=== PATIENT | male | born 1940 | race Caucasian/White ===

== ENCOUNTER → 2020-11-25 01:33 | Outpatient (CLI) | payer MEDICARE, OTHER, SELFPAY ==
[2020-11-26 08:28] LABS: SARS-CoV-2 RNA PCR Negative
== END ==
PROVIDERS: PCP Family Medicine; Visit Provider Internal Medicine Gastroenterology
DX: Z01.812 Encounter for preprocedural laboratory examination (principal); Z20.822 Contact with and (suspected) exposure to COVID-19
CPT/HCPCS: C9803; U0003; U0005

== ENCOUNTER 2020-11-28 00:53 | Day surgery (SDC) | payer MEDICARE, OTHER, SELFPAY ==
[2020-11-16 13:39] VITALS: BMI 28.0
[2020-11-28 06:22] VITALS: BP 135/72; PULSE 79; RESP 17; TEMP 36.4; O2SAT 97; BMI 28.2
[2020-11-28] MEDS: LACTATED RINGERS 1,000 ML 150 ML IV CONT (06:29)
--- NOTE | 2020-11-28 07:17 | PM.HPGS ---
History of Present Illness History of Present Illness Consent: Risks, benefits, and alternatives have been discussed and questions answered. Patient agrees to proceed with procedure. Chief complaint: Neoplasm Screening Narrative: Felix Azevedo is a 80 year old male Referred for colon cancer scr Review of Systems Review of Systems: All systems reviewed & are unremarkable except as noted in HPI and below PMFSH Past Medical History Medical History Hyperlipidemia Hypertension Surgical History Surgical History (Updated 11/28/20 @ 07:15 by Oliverio Beth MD) S/P CABG x 3 Social History Social History Smoking status: Former smoker Alcohol intake: current Drinks per week: 7 Substance use type: does not use Living arrangements: with family Gender identity (if verbalized by the patient): Male Spiritual care concerns: No Meds Home Medications and Allergies Home Medications Medication Instructions Recorded Confirmed Type aspirin [Adult Low Dose Aspirin] 81 mg PO DAILY 11/16/20 11/28/20 History clopidogrel [Plavix] 75 mg PO DAILY 11/16/20 11/28/20 History metoprolol tartrate 50 mg PO DAILY 11/16/20 11/28/20 History simvastatin 20 mg PO DAILY 11/16/20 11/28/20 History Allergies Allergy/AdvReac Type Severity Reaction Status Date / Time No Known Allergies Allergy Verified 11/28/20 06:19 Vital Signs Vital Signs - 24 hr 11/28/20 06:22 Temperature 36.4 C L Pulse Rate 79 Respiratory Rate 17 Blood Pressure 135/72 Pulse Oximetry 79 L Exam Resp: Auscultation: clear to auscultation bilaterally Cardio: Rate: regular rate Rhythm: regular rhythm GI: GI Palp: Yes Soft to palpation and No Tenderness to palpation present (GI) Assessment and Plan Assessment and plan (1) Colon cancer screening: Code(s): Z12.11 - Encounter for screening for malignant neoplasm of colon Status: Acute Assessment and Plan: Colonoscopy with possible biopsy or polypectomy or cautery or injection of substances. (2) Personal history of colonic polyps: Code(s): Z86.010 - Personal history of colonic polyps Status: Acute Assessment and Plan: Colonoscopy with possible biopsy or polypectomy or cautery or injection of substances.
--- NOTE | 2020-11-28 07:21 | WPDANESEPPF ---
Anes - Initial Pre Proc Eval Procedure: Operation Date: 11/28/20 07:30 Proposed Procedures p Screening Colonoscopy - Keith Plummer MD Date/Time: 11/28/20 07:21 Surgeon: Keith Plummer MD Pre Op Diagnosis: Neoplasm Screening Patient Data Age: 80 Gender: M Height: 5 ft 9 in Weight: 86.7 kg Last Vital Signs Temp 97.5 F L 11/28/20 06:22 Pulse 79 11/28/20 06:22 Resp 17 11/28/20 06:22 BP 135/72 11/28/20 06:22 Pulse Ox 79 L 11/28/20 06:22 Allergies Allergy/AdvReac Type Severity Reaction Status Date / Time No Known Allergies Allergy Verified 11/28/20 06:19 Home Medications Medication Instructions Recorded Confirmed Type aspirin [Adult Low Dose Aspirin] 81 mg PO DAILY 11/16/20 11/28/20 History clopidogrel [Plavix] 75 mg PO DAILY 11/16/20 11/28/20 History metoprolol tartrate 50 mg PO DAILY 11/16/20 11/28/20 History simvastatin 20 mg PO DAILY 11/16/20 11/28/20 History Patient hx anesthesia problems: none Family hx anesthesia problems: none PMFSH Past Medical History Medical History Hyperlipidemia Hypertension Surgical History Surgical History (Updated 11/28/20 @ 07:15 by Oliverio Beth MD) S/P CABG x 3 Social History Social History Smoking status: Former smoker Alcohol intake: current Drinks per week: 7 Substance use type: does not use Living arrangements: with family Gender identity (if verbalized by the patient): Male Spiritual care concerns: No Anes - Eval Final PreProcedure Day of Procedure 11/28/20 07:21 Patient weight: normal Heart: regular rate and rhythm Lungs: clear to auscultation Airway: Mallampati scale class II Neurological: alert and oriented Last oral intake: >/= 8 hours ASA classification: III Emergent: no Anesthetic plan: proceed Anesthesia type and monitoring: general GIVS and standard monitoring Informed Consent: The patient's anesthetic plan and its attendant risks and benefits were discussed with the patient/family/POA. Questions were solicited and answers provided to the satisfaction of the patient/family/POA.
[2020-11-28 07:48] VITALS: BP 108/67; PULSE 63; RESP 22; O2SAT 99
[2020-11-28 07:58] VITALS: BP 125/78; PULSE 65; RESP 20; O2SAT 98
[2020-11-28 08:08] VITALS: BP 126/70; PULSE 57; RESP 18; O2SAT 98
== END 2020-11-28 08:25 | disposition home or self-care (01) ==
PROVIDERS: PCP Family Medicine; Visit Provider Internal Medicine Gastroenterology
PROC: 0DJD8ZZ Inspection of Lower Intestinal Tract, Via Natural or Artificial Opening Endoscopic (ICD-10-PCS; CPT 45378; principal; 2020-11-28 07:30)
DX: Z12.11 Encounter for screening for malignant neoplasm of colon (principal); K57.30 Diverticulosis of large intestine without perforation or abscess without bleeding; D12.0 Benign neoplasm of cecum; D12.5 Benign neoplasm of sigmoid colon; D12.3 Benign neoplasm of transverse colon; K64.8 Other hemorrhoids; I10 Essential (primary) hypertension; Z95.1 Presence of aortocoronary bypass graft; E78.5 Hyperlipidemia, unspecified; Z87.891 Personal history of nicotine dependence; Z79.82 Long term (current) use of aspirin; Z79.02 Long term (current) use of antithrombotics/antiplatelets
CPT/HCPCS: 45380; 45385; 88305; J2704; J7120